=== PATIENT | male | born 1970 | race African-American/Black ===

== ENCOUNTER 2017-06-24 19:18 | Emergency (ER) | payer MEDICAID ==
[~2017-06-24] VITALS: Ht 180.3 cm; Wt 80.0 kg
[2017-06-24] MEDS ORDERED: MESA400C PO (19:22)
[2017-06-25] MEDS ORDERED: ACETAMINOPHEN 500MG TABLET PO ONE (06:45)
[2017-06-25 07:02] LABS: BASOPHILS % 0.9 % (0.0-2.0); EOSINOPHILS % 1.6 % (0.0-5.0); HEMOGLOBIN. 11.2 g/dL (14.0-18.0); LYMPHOCYTES % 14.5 % (20.0-50.0); MEAN CORPUSCULAR HEMOGLOBIN 25.3 pg (28.0-32.0); MEAN CORPUSCULAR VOLUME 79.1 fL (80.0-94.0); MEAN PLATELET VOLUME 7.6 fl (7.4-10.4); MONOCYTES % 9.1 % (2.0-8.0); NEUTROPHILS % 73.9 % (40.0-76.0); PLATELET 267 x1000/uL (130-400); RED BLOOD CELL COUNT 4.42 mill/uL (4.7-6.1); RED CELL DISTRIBUTION WIDTH 17.1 % (11.6-14.6)
[2017-06-25 07:08] LABS: INR 1.1; PROTHROMBIN TIME 11.4 sec (9.4-11.6)
[2017-06-25 07:11] LABS: CHLORIDE 105 mEq/L (98-107)
[2017-06-25 09:12] VITALS: BP 121/72
[2017-06-25 09:19] LABS: CLARITY URINE CLEAR (CLEAR); COLOR URINE YELLOW (YELLOW); KETONES URINE 1+ (NEGATIVE); LEUKOCYTE ESTERASE URINE NEGATIVE (NEGATIVE); NITRITE URINE NEGATIVE (NEGATIVE); OCCULT BLOOD URINE NEGATIVE (NEGATIVE); PROTEIN URINE NEGATIVE (NEGATIVE); SPECIFIC GRAVITY URINE 1.032 (1.005-1.030); UROBILINOGEN URINE 0.2 E.U./dL (0.2-1.0)
[2017-06-25] MEDS ORDERED: IOHEXOL-300 100 ML BOTTLE ONE (09:19)
== END 2017-06-25 10:59 | disposition home or self-care (01) ==
LOC: ER 20:08
DX: K50.90 Crohn's disease, unspecified, without complications (principal); R10.9 Unspecified abdominal pain
CPT/HCPCS: 36415; 74177; 80053; 81003; 83690; 85025; 85610; 99285; Q9967

== ENCOUNTER 2021-07-02 20:37 | Inpatient (IN) | payer MEDICAID, OTHER ==
[~2021-07-02] VITALS: Ht 175.3 cm; Wt 54.4 kg
[~2021-07-02 20:37] MED LIST: MESA400C PO
[2021-07-03] MEDS ORDERED: ONDANSETRON HCL 4MG/2ML INJ IV STA (00:40)
[2021-07-03] MEDS ORDERED: MORPHINE SULFATE 4 MG/ML CPJ (NOT FOR IM USE) IV STA (00:40)
[2021-07-03] MEDS ORDERED: SODIUM CHLORIDE 0.9% 1,000 ML IV ONE (00:45)
[2021-07-03 01:07] LABS: BASOPHILS % 0.4 % (0.0-2.0); EOSINOPHILS % 0.9 % (0.0-5.0); HEMATOCRIT. 35.2 % (42.0-52.0); LYMPHOCYTES % 8.2 % (20.0-50.0); MEAN CORPUSCULAR HEMOGLOBIN 25.6 pg (28.0-32.0); MEAN CORPUSCULAR VOLUME 81.8 fL (80.0-94.0); MEAN PLATELET VOLUME 7.2 fl (7.4-10.4); MONOCYTES % 10.1 % (2.0-8.0); NEUTROPHILS % 80.4 % (40.0-76.0); PLATELET 351 x1000/uL (130-400); RED CELL DISTRIBUTION WIDTH 15.5 % (11.6-14.6)
[2021-07-03 01:09] LABS: CHLORIDE 104 mEq/L (98-107)
[2021-07-03 04:04] LABS: CLARITY URINE CLEAR (CLEAR); COLOR URINE YELLOW (YELLOW); KETONES URINE NEGATIVE (NEGATIVE); LEUKOCYTE ESTERASE URINE NEGATIVE (NEGATIVE); NITRITE URINE NEGATIVE (NEGATIVE); OCCULT BLOOD URINE NEGATIVE (NEGATIVE); PH URINE 5.5 (4.5-8.0); PROTEIN URINE 1+ (NEGATIVE); SPECIFIC GRAVITY URINE >1.040 (1.005-1.030); UROBILINOGEN URINE 0.2 E.U./dL (0.2-1.0)
[2021-07-03] MEDS ORDERED: IOHEXOL-300 100 ML BOTTLE ONE (04:19)
[2021-07-03] MEDS ORDERED: METRONIDAZOLE 500 MG PREMIX 100 ML IV ONE (04:30)
[2021-07-03] MEDS ORDERED: MORPHINE SULFATE 4 MG/ML CPJ (NOT FOR IM USE) IV ONE (04:30)
[2021-07-03] MEDS ORDERED: NALOXONE HCL 0.4MG/ML VIAL IV PRN (08:15)
[2021-07-03] MEDS: MORPHINE SULFATE 2 MG/ML CPJ (NOT FOR IM USE) IV PRN ×4 (08:19→22:59)
[2021-07-03 21:46] VITALS: BP 125/75
[2021-07-03] MEDS ORDERED: ONDANSETRON HCL 4MG/2ML INJ IV PRN (23:45)
[2021-07-04] VITALS: BP 125/75
[2021-07-04] MEDS: MORPHINE SULFATE 2 MG/ML CPJ (NOT FOR IM USE) IV PRN ×4 (03:51→20:16)
[2021-07-04 04:00] VITALS: BP 109/66
[2021-07-04 08:00] VITALS: BP 103/64
[2021-07-04] MEDS: PANTOPRAZOLE SODIUM 40 MG/VIAL IV SCH (09:58)
[2021-07-04] MEDS: PREDNISONE 20MG TABLET PO SCH (09:59)
[2021-07-04 12:00] VITALS: BP 109/59
[2021-07-04] MEDS: PIPERACILLIN/TAZOBACTAM 3.375 G in DEXTROSE 5% WATER 50 ML IV SCH ×2 (14:13→21:39)
[2021-07-04 16:00] VITALS: BP 119/70
[2021-07-05] VITALS: BP 98/52
[2021-07-05] MEDS: MORPHINE SULFATE 2 MG/ML CPJ (NOT FOR IM USE) IV PRN ×5 (01:44→20:27)
[2021-07-05 04:00] VITALS: BP 101/62
[2021-07-05] MEDS: PIPERACILLIN/TAZOBACTAM 3.375 G in DEXTROSE 5% WATER 50 ML IV SCH ×3 (05:32→23:00)
[2021-07-05 08:00] VITALS: BP 116/76
[2021-07-05 08:04] LABS: CHLORIDE 102 mEq/L (98-107)
[2021-07-05 08:14] LABS: TOTAL IRON BINDING CAPACITY 247 ug/dL (250-450)
[2021-07-05 08:23] LABS: FOLIC ACID (FOLATE) SERUM 8.2 ng/mL (>5.38)
[2021-07-05 08:53] LABS: BASOPHILS % 0.1 % (0.0-2.0); HEMOGLOBIN. 11.2 g/dL (14.0-18.0); LYMPHOCYTES % 9.3 % (20.0-50.0); MEAN CORPUSCULAR HEMOGLOBIN 25.1 pg (28.0-32.0); MEAN CORPUSCULAR VOLUME 80.8 fL (80.0-94.0); MEAN PLATELET VOLUME 7.8 fl (7.4-10.4); MONOCYTES % 9.6 % (2.0-8.0); PLATELET 366 x1000/uL (130-400); RED BLOOD CELL COUNT 4.46 mill/uL (4.7-6.1); RED CELL DISTRIBUTION WIDTH 15.4 % (11.6-14.6)
[2021-07-05] MEDS: PANTOPRAZOLE SODIUM 40 MG/VIAL IV SCH (08:57)
[2021-07-05] MEDS: PREDNISONE 20MG TABLET PO SCH (08:57)
[2021-07-05] MEDS: MESALAMINE 400 MG CAPSULE.DR PO SCH ×3 (08:58→17:28)
[2021-07-05 12:00] VITALS: BP 109/64
[2021-07-05 16:00] VITALS: BP 104/64
[2021-07-05 20:00] VITALS: BP 105/52
[2021-07-06] VITALS: BP 106/58
[2021-07-06] MEDS: MORPHINE SULFATE 2 MG/ML CPJ (NOT FOR IM USE) IV PRN ×2 (00:53→07:05)
[2021-07-06 04:00] VITALS: BP 97/53
[2021-07-06] MEDS: PIPERACILLIN/TAZOBACTAM 3.375 G in DEXTROSE 5% WATER 50 ML IV SCH (07:01)
[2021-07-06 08:00] VITALS: BP 114/70
[2021-07-06] MEDS: MESALAMINE 400 MG CAPSULE.DR PO SCH ×2 (09:04→13:11)
[2021-07-06] MEDS: PREDNISONE 20MG TABLET PO SCH (09:05)
[2021-07-06] MEDS: PANTOPRAZOLE SODIUM 40 MG/VIAL IV SCH (09:05)
[2021-07-06 10:16] LABS: BASOPHILS % 0.2 % (0.0-2.0); HEMATOCRIT. 35.4 % (42.0-52.0); LYMPHOCYTES % 10.1 % (20.0-50.0); MEAN CORPUSCULAR HEMOGLOBIN 25.2 pg (28.0-32.0); MEAN CORPUSCULAR VOLUME 81.5 fL (80.0-94.0); MEAN PLATELET VOLUME 7.3 fl (7.4-10.4); MONOCYTES % 7.1 % (2.0-8.0); NEUTROPHILS % 81.6 % (40.0-76.0); PLATELET 358 x1000/uL (130-400); RED BLOOD CELL COUNT 4.35 mill/uL (4.7-6.1); RED CELL DISTRIBUTION WIDTH 15.7 % (11.6-14.6)
[2021-07-06 10:24] LABS: CHLORIDE 102 mEq/L (98-107)
[2021-07-06] MEDS ORDERED: P20 PO (11:38)
[2021-07-06] MEDS ORDERED: MESA400C PO (11:38)
[2021-07-06 12:00] VITALS: BP 103/65
[2021-07-06 13:45] VITALS: BP 103/65
[2021-07-07 13:11] LABS: OVA & PARASITE EXAM Final report (.)
== END 2021-07-06 14:40 | disposition home or self-care (01) | DRG 245 ==
LOC: ER 20:37 → 6EST 07-03 05:09 → EDBEDREQ 07-03 05:20 → ENRESERV 07-03 20:01
PROVIDERS: ADMIT Internal Medicine; ATTEND Internal Medicine
DX: K50.10 Crohn's disease of large intestine without complications (principal); E44.1 Mild protein-calorie malnutrition; D64.9 Anemia, unspecified; F12.90 Cannabis use, unspecified, uncomplicated; Y90.9 Presence of alcohol in blood, level not specified; K86.1 Other chronic pancreatitis; R19.7 Diarrhea, unspecified; F10.21 Alcohol dependence, in remission; Z68.1 Body mass index [BMI] 19.9 or less, adult
CPT/HCPCS: 36415; 74177; 80048; 80053; 81003; 82105; 82270; 82378; 82607; 82728; 82746; 83540; 83550; 85025; 86301; 87015; 87045; 87177; 87209; 87427; 87449; 87493; 89055; 96361; 96365; 96375; 96376; 99285; C9113; J2270; J2405; J2543; J3490; J7030; J7040; J7060; J7512; Q9967

== ENCOUNTER 2023-03-15 22:04 | Inpatient (IN) | payer MEDICAID ==
[~2023-03-15] VITALS: Ht 175.3 cm; Wt 79.8 kg
[~2023-03-15 22:04] MED LIST changes: +P20 PO
[2023-03-15 22:38] LABS: BASOPHILS % 0.5 % (0.0-2.0); DIFFERENTIAL COMMENT 0; HEMOGLOBIN. 9.8 g/dL (14.0-18.0); LYMPHOCYTES % 14.1 % (20.0-50.0); MEAN CORPUSCULAR HEMOGLOBIN 23.9 pg (28.0-32.0); MEAN CORPUSCULAR HGB CONC 31.4 g/dL (31.0-37.0); MEAN PLATELET VOLUME 7.2 fl (7.4-10.4); MONOCYTES % 8.6 % (2.0-8.0); NEUTROPHILS % 72.8 % (40.0-76.0); PLATELET 316 x1000/uL (130-400); RED BLOOD CELL COUNT 4.08 mill/uL (4.7-6.1); RED CELL DISTRIBUTION WIDTH 17.3 % (11.6-14.6); WHITE BLOOD COUNT 9.5 x1000/uL (4.5-11.0)
[2023-03-15 22:57] LABS: ALANINE AMINOTRANSFERASE 15 IU/L (10-49); ALBUMIN 3.9 g/dL (3.2-4.8); ASPARTATE AMINOTRANSFERASE 24 IU/L (<34); BILIRUBIN TOTAL 0.3 mg/dL (0.1-1.0); CALCIUM 8.9 mg/dL (8.7-10.4); CARBON DIOXIDE 29 mEq/L (21-32); CHLORIDE 103 mEq/L (98-107); CREATININE 0.7 mg/dL (0.6-1.3); GLUCOSE 94 mg/dL (70-105); POTASSIUM 3.6 mEq/L (3.5-5.1); PROTEIN TOTAL 7.2 g/dL (6.0-8.3); SODIUM 139 mEq/L (136-145); UREA NITROGEN BLOOD 11 mg/dL (9-23)
[2023-03-16] MEDS ORDERED: KETOROLAC 30MG/ML VIAL IV STA (00:28)
[2023-03-16] MEDS ORDERED: MAGNESIUM/ALUMINUM HYDROXIDE/SIMETHICONE 30ML UDC PO STA (00:28)
[2023-03-16] MEDS ORDERED: SODIUM CHLORIDE 0.9% 1,000 ML IV ONE (00:30)
[2023-03-16 04:00] VITALS: BP 112/50; PULSE 56; RESP 18; TEMP 97.7
[2023-03-16] MEDS ORDERED: ONDANSETRON HCL 4MG/2ML INJ IV PRN (04:30)
[2023-03-16 04:33] VITALS: BP 112/50; PULSE 56; RESP 18; TEMP 97.7
[2023-03-16] MEDS: SODIUM CHLORIDE 0.9% 1,000 ML IV SCH ×2 (04:58→13:51)
[2023-03-16] MEDS: MORPHINE SULFATE 2 MG/ML CPJ (NOT FOR IM USE) IV PRN ×4 (04:59→19:42)
[2023-03-16 07:27] LABS: BASOPHILS % 1.1 % (0.0-2.0); DIFFERENTIAL COMMENT 0; EOSINOPHILS % 6.1 % (0.0-5.0); HEMOGLOBIN. 9.8 g/dL (14.0-18.0); MEAN CORPUSCULAR HEMOGLOBIN 23.9 pg (28.0-32.0); MEAN CORPUSCULAR HGB CONC 31.6 g/dL (31.0-37.0); MEAN CORPUSCULAR VOLUME 75.8 fL (80.0-94.0); MONOCYTES % 10.2 % (2.0-8.0); NEUTROPHILS % 65.6 % (40.0-76.0); PLATELET 304 x1000/uL (130-400); RED BLOOD CELL COUNT 4.09 mill/uL (4.7-6.1); RED CELL DISTRIBUTION WIDTH 17.5 % (11.6-14.6); WHITE BLOOD COUNT 7.3 x1000/uL (4.5-11.0)
[2023-03-16 08:00] VITALS: BP 130/72; PULSE 59; RESP 18; TEMP 97.9
[2023-03-16 08:35] LABS: CALCIUM 8.1 mg/dL (8.7-10.4); CARBON DIOXIDE 28 mEq/L (21-32); CHLORIDE 105 mEq/L (98-107); CREATININE 0.6 mg/dL (0.6-1.3); GLUCOSE 79 mg/dL (70-105); POTASSIUM 3.7 mEq/L (3.5-5.1); SODIUM 139 mEq/L (136-145); UREA NITROGEN BLOOD 9 mg/dL (9-23)
[2023-03-16] MEDS ORDERED: IOHEXOL-300 100 ML BOTTLE ONE (09:43)
[2023-03-16 12:00] VITALS: BP 123/75; PULSE 61; RESP 19; TEMP 97.7
[2023-03-16] MEDS: METHYLPREDNISOLONE SOD SUCC 40MG/ML (ACT-O-VIAL) IV SCH ×2 (14:52→21:29)
[2023-03-16] MEDS: MESALAMINE 400 MG CAPSULE.DR PO SCH ×2 (14:52→17:15)
[2023-03-16] MEDS: PIPERACILLIN/TAZOBACTAM 3.375 G in DEXTROSE 5% WATER 50 ML IV SCH ×2 (15:39→21:30)
[2023-03-16 15:54] LABS: IRON 30 ug/dL (65-175); LACTATE DEHYDROGENASE 271 IU/L (120-246); TOTAL IRON BINDING CAPACITY 274 ug/dl (250-425)
[2023-03-16 15:59] LABS: FERRITIN 17 ng/mL (22-322); VITAMIN B12 SERUM 526 pg/mL (211-911)
[2023-03-16 16:00] VITALS: BP 120/69; PULSE 61; RESP 18; TEMP 97.9
[2023-03-16 16:01] LABS: CARCINO EMBRYONIC ANTIGEN 0.4 ng/ml
[2023-03-16] MEDS ORDERED: NALOXONE HCL 0.4MG/ML VIAL IV PRN (18:30)
[2023-03-16 20:00] VITALS: BP 108/70; PULSE 64; RESP 19; TEMP 97.7
[2023-03-17] VITALS: BP 114/74; PULSE 56; RESP 18; TEMP 97.5
[2023-03-17] MEDS: MORPHINE SULFATE 2 MG/ML CPJ (NOT FOR IM USE) IV PRN ×5 (00:01→17:28)
[2023-03-17] MEDS: SODIUM CHLORIDE 0.9% 1,000 ML IV SCH ×2 (00:02→10:18)
[2023-03-17 04:00] VITALS: BP 110/7; PULSE 54; RESP 19; TEMP 97.5
[2023-03-17] MEDS: PIPERACILLIN/TAZOBACTAM 3.375 G in DEXTROSE 5% WATER 50 ML IV SCH ×2 (05:05→14:34)
[2023-03-17] MEDS: METHYLPREDNISOLONE SOD SUCC 40MG/ML (ACT-O-VIAL) IV SCH ×2 (05:06→14:34)
[2023-03-17 07:47] LABS: HEMATOCRIT. 34.7 % (42.0-52.0); HEMOGLOBIN. 10.4 g/dL (14.0-18.0); MEAN CORPUSCULAR HEMOGLOBIN 23.2 pg (28.0-32.0); MEAN CORPUSCULAR VOLUME 77.4 fL (80.0-94.0); MEAN PLATELET VOLUME 7.9 fl (7.4-10.4); PLATELET 357 x1000/uL (130-400); RED BLOOD CELL COUNT 4.48 mill/uL (4.7-6.1); RED CELL DISTRIBUTION WIDTH 17.3 % (11.6-14.6); WHITE BLOOD COUNT 12.5 x1000/uL (4.5-11.0)
[2023-03-17 07:54] LABS: DIFFERENTIAL COMMENT 1
[2023-03-17 08:00] VITALS: BP 110/72; PULSE 56; RESP 18; TEMP 97.7
[2023-03-17 08:21] LABS: CALCIUM 8.4 mg/dL (8.7-10.4); CARBON DIOXIDE 25 mEq/L (21-32); CHLORIDE 103 mEq/L (98-107); CREATININE 0.7 mg/dL (0.6-1.3); GLUCOSE 117 mg/dL (70-105); POTASSIUM 4.3 mEq/L (3.5-5.1); SODIUM 138 mEq/L (136-145); UREA NITROGEN BLOOD 7 mg/dL (9-23)
[2023-03-17] MEDS: MESALAMINE 400 MG CAPSULE.DR PO SCH ×3 (09:05→17:29)
[2023-03-17 12:00] VITALS: BP 110/65; PULSE 90; RESP 18; TEMP 96.9
[2023-03-17 16:00] VITALS: BP 108/57; PULSE 63; RESP 18; TEMP 96
[2023-03-17] MEDS ORDERED: FERROUS SULFATE 325MG TABLET PO SCH (17:00)
[2023-03-17] MEDS ORDERED: ASCORBIC ACID 500 MG TABLET PO SCH (17:00)
[2023-03-17] MEDS ORDERED: P20 PO (17:39)
[2023-03-17] MEDS ORDERED: MESA400C PO (17:39)
[2023-03-17 18:15] VITALS: BP 108/57; PULSE 63; TEMP 97.5; O2SAT 100
[2023-03-18 04:02] LABS: ANISOCYTOSIS 1+; HYPOCHROMASIA 1+; MICROCYTOSIS 1+; PLATELET ESTIMATE NORMAL
[2023-03-18 09:07] LABS: ALPHA FETOPROTEIN TUMOR MARKER < 1.8 ng/mL (0.0-8.4); CA 19-9 8 U/mL (0-35)
[2023-03-21 13:07] LABS: SACCHAROMYCES CEREVISIAE IGG <20.0 Units (0.0-24.9); SACCHAROMYCES CEREVISIAE IGM <20.0 Units (0.0-24.9)
[2023-03-21 17:11] LABS: ANTI-MYELOPEROXIDASE AB < 0.2 units (0.0-0.9); ANTI-PROTEINASE 3 ABS < 0.2 units (0.0-0.9)
[2023-03-22 13:06] LABS: ATYPICAL P-ANCA <1:20 titer (Neg:<1:20); ATYPICAL pANCA <1:20 titer (Neg:<1:20); CYTOPLASMIC C-ANCA <1:20 titer (Neg:<1:20); PERINUCLEAR P-ANCA <1:20 titer (Neg:<1:20)
== END 2023-03-17 18:52 | disposition home or self-care (01) | DRG 245 ==
LOC: ER 22:04 → EDBEDREQ 03-16 00:53 → 6EST 03-16 04:13
PROVIDERS: ADMIT Internal Medicine; ATTEND Internal Medicine
DX: K50.90 Crohn's disease, unspecified, without complications (principal); R16.0 Hepatomegaly, not elsewhere classified; D50.9 Iron deficiency anemia, unspecified; F14.10 Cocaine abuse, uncomplicated; F17.210 Nicotine dependence, cigarettes, uncomplicated; T38.0X5A Adverse effect of glucocorticoids and synthetic analogues, initial encounter; Z79.899 Other long term (current) drug therapy; Z91.010 Allergy to peanuts; Y92.89 Other specified places as the place of occurrence of the external cause
CPT/HCPCS: 36415; 74177; 80048; 80053; 82105; 82270; 82378; 82607; 82728; 82746; 83520; 83540; 83550; 83605; 83615; 85025; 85044; 86256; 86301; 86671; 99285; J1885; J2270; J2543; J2920; J7030; J7060; Q9967

== ENCOUNTER 2023-05-16 22:51 | Emergency (ER) | payer MEDICAID ==
[~2023-05-16] VITALS: Ht 180.3 cm; Wt 63.0 kg
[~2023-05-16 22:51] MED LIST changes: -P20 PO; +PRED10TA23 MT
[2023-05-16 23:30] VITALS: O2SAT 98
[2023-05-16 23:35] LABS: BASOPHILS % 1.8 % (0.0-2.0); DIFFERENTIAL COMMENT 0; EOSINOPHILS % 5.1 % (0.0-5.0); HEMATOCRIT. 30.4 % (42.0-52.0); HEMOGLOBIN. 9.5 g/dL (14.0-18.0); MEAN CORPUSCULAR HEMOGLOBIN 23.8 pg (28.0-32.0); MEAN CORPUSCULAR HGB CONC 31.3 g/dL (31.0-37.0); MONOCYTES % 9.2 % (2.0-8.0); NEUTROPHILS % 68.9 % (40.0-76.0); PLATELET 296 x1000/uL (130-400); RED CELL DISTRIBUTION WIDTH 17.6 % (11.6-14.6); WHITE BLOOD COUNT 8.6 x1000/uL (4.5-11.0)
[2023-05-16 23:49] LABS: ALANINE AMINOTRANSFERASE 11 IU/L (10-49); ALBUMIN 4.1 g/dL (3.2-4.8); ASPARTATE AMINOTRANSFERASE 22 IU/L (<34); BILIRUBIN TOTAL 0.3 mg/dL (0.1-1.0); CALCIUM 8.9 mg/dL (8.7-10.4); CARBON DIOXIDE 28 mEq/L (21-32); CHLORIDE 107 mEq/L (98-107); CREATININE 0.8 mg/dL (0.6-1.3); GLUCOSE 88 mg/dL (70-105); PROTEIN TOTAL 6.5 g/dL (6.0-8.3); SODIUM 141 mEq/L (136-145); UREA NITROGEN BLOOD 16 mg/dL (9-23)
[2023-05-17 00:03] LABS: CLARITY URINE CLEAR (CLEAR); COLOR URINE YELLOW (YELLOW); GLUCOSE URINE NEGATIVE (NEGATIVE); KETONES URINE TRACE (NEGATIVE); LEUKOCYTE ESTERASE URINE NEGATIVE (NEGATIVE); NITRITE URINE NEGATIVE (NEGATIVE); OCCULT BLOOD URINE NEGATIVE (NEGATIVE); PROTEIN URINE NEGATIVE (NEGATIVE); SPECIFIC GRAVITY URINE 1.025 (1.005-1.030)
[2023-05-17] MEDS: ACETAMINOPHEN 325MG TABLET PO ONE (01:00)
[2023-05-17 01:05] VITALS: BP 141/74; PULSE 88; RESP 16; TEMP 98.3
== END 2023-05-17 01:59 | disposition home or self-care (01) ==
LOC: ER 22:51
DX: R10.9 Unspecified abdominal pain (principal); K50.90 Crohn's disease, unspecified, without complications; Z88.6 Allergy status to analgesic agent
CPT/HCPCS: 36415; 80053; 81003; 85025; 99283

== ENCOUNTER 2023-07-09 03:42 | Inpatient (IN) | payer MEDICAID ==
[~2023-07-09] VITALS: Ht 180.3 cm; Wt 62.6 kg
[2023-07-09 04:19] LABS: BASOPHILS % 0.9 % (0.0-2.0); DIFFERENTIAL COMMENT 0; HEMATOCRIT. 32.7 % (42.0-52.0); HEMOGLOBIN. 10.1 g/dL (14.0-18.0); LYMPHOCYTES % 9.9 % (20.0-50.0); MEAN CORPUSCULAR HEMOGLOBIN 24.1 pg (28.0-32.0); MEAN CORPUSCULAR VOLUME 77.7 fL (80.0-94.0); MEAN PLATELET VOLUME 7.2 fl (7.4-10.4); MONOCYTES % 10.1 % (2.0-8.0); NEUTROPHILS % 73.1 % (40.0-76.0); PLATELET 297 x1000/uL (130-400); RED BLOOD CELL COUNT 4.21 mill/uL (4.7-6.1); RED CELL DISTRIBUTION WIDTH 17.7 % (11.6-14.6); WHITE BLOOD COUNT 10.2 x1000/uL (4.5-11.0)
[2023-07-09 04:37] LABS: INR 0.9; PROTHROMBIN TIME 10.5 sec (9.6-11.0)
[2023-07-09 04:41] LABS: ALANINE AMINOTRANSFERASE 18 IU/L (10-49); ALBUMIN 4.5 g/dL (3.2-4.8); ASPARTATE AMINOTRANSFERASE 32 IU/L (<34); BILIRUBIN TOTAL 0.3 mg/dL (0.1-1.0); CALCIUM 9.3 mg/dL (8.7-10.4); CARBON DIOXIDE 28 mEq/L (21-32); CHLORIDE 106 mEq/L (98-107); CREATININE 0.8 mg/dL (0.6-1.3); GLUCOSE 84 mg/dL (70-105); POTASSIUM 4.1 mEq/L (3.5-5.1); PROTEIN TOTAL 7.6 g/dL (6.0-8.3); SODIUM 141 mEq/L (136-145); UREA NITROGEN BLOOD 14 mg/dL (9-23)
[2023-07-09 04:45] LABS: ETHANOL BLOOD < 10 mg/dL (<10)
[2023-07-09] MEDS: SODIUM CHLORIDE 0.9% 1,000 ML IV ONE (06:30)
[2023-07-09] MEDS: KETOROLAC 30MG/ML VIAL IV ONE (06:53)
[2023-07-09] MEDS: ONDANSETRON HCL 4MG/2ML INJ IV ONE (06:53)
[2023-07-09] MEDS: MORPHINE SULFATE 4 MG/ML INJ (FOR IV/IM USE) IV ONE (07:49)
[2023-07-09] MEDS ORDERED: ONDANSETRON HCL 4MG/2ML INJ IV PRN (11:30)
[2023-07-09] MEDS: METHYLPREDNISOLONE SOD SUCC 40MG/ML (ACT-O-VIAL) IV SCH (11:54)
[2023-07-09] MEDS: HYDROCODONE/ACETAMINOPHEN 5/325MG TABLET PO NR (11:55)
[2023-07-09] MEDS: MESALAMINE 400 MG CAPSULE.DR PO SCH ×2 (13:11→17:00)
[2023-07-09] MEDS: HYDROCODONE/ACETAMINOPHEN 5/325MG TABLET PO PRN (16:14)
[2023-07-09 16:51] VITALS: BP 115/67; PULSE 64; RESP 20; TEMP 98.2
[2023-07-09 20:00] VITALS: BP 102/64; PULSE 65; RESP 16; TEMP 96.6
[2023-07-10] VITALS: BP 123/80; PULSE 52; RESP 20; TEMP 97.3
[2023-07-10] MEDS: PANTOPRAZOLE SODIUM 40 MG/VIAL IV SCH (09:19)
[2023-07-10 12:13] VITALS: BP 110/64; PULSE 71; RESP 20; TEMP 98.2
[2023-07-10 16:00] VITALS: BP 146/73; PULSE 60; RESP 18; TEMP 98.2
[2023-07-10 20:00] VITALS: BP 137/83; PULSE 72; RESP 19; TEMP 97.7
[2023-07-11] VITALS: BP 120/66; PULSE 67; RESP 19; TEMP 98.1
[2023-07-11 04:00] VITALS: BP 123/72; PULSE 72; RESP 18; TEMP 97.8
[2023-07-11 06:38] LABS: BASOPHILS % 0.2 % (0.0-2.0); DIFFERENTIAL COMMENT 0; HEMATOCRIT. 31.2 % (42.0-52.0); HEMOGLOBIN. 9.7 g/dL (14.0-18.0); LYMPHOCYTES % 7.5 % (20.0-50.0); MEAN CORPUSCULAR HEMOGLOBIN 23.8 pg (28.0-32.0); MEAN CORPUSCULAR HGB CONC 31.1 g/dL (31.0-37.0); MEAN CORPUSCULAR VOLUME 76.5 fL (80.0-94.0); MEAN PLATELET VOLUME 7.5 fl (7.4-10.4); MONOCYTES % 4.5 % (2.0-8.0); NEUTROPHILS % 87.8 % (40.0-76.0); PLATELET 294 x1000/uL (130-400); RED BLOOD CELL COUNT 4.08 mill/uL (4.7-6.1); RED CELL DISTRIBUTION WIDTH 17.7 % (11.6-14.6); WHITE BLOOD COUNT 17.5 x1000/uL (4.5-11.0)
[2023-07-11 07:23] LABS: CALCIUM 8.5 mg/dL (8.7-10.4); CARBON DIOXIDE 28 mEq/L (21-32); CHLORIDE 106 mEq/L (98-107); CREATININE 0.7 mg/dL (0.6-1.3); GLUCOSE 128 mg/dL (70-105); IRON 25 ug/dL (65-175); POTASSIUM 4.1 mEq/L (3.5-5.1); SODIUM 138 mEq/L (136-145); TOTAL IRON BINDING CAPACITY 234 ug/dl (250-425); UREA NITROGEN BLOOD 14 mg/dL (9-23)
[2023-07-11 07:50] LABS: FERRITIN 12 ng/mL (22-322); FOLIC ACID (FOLATE) SERUM 13.26 ng/mL (>5.38); VITAMIN B12 SERUM 350 pg/mL (211-911)
[2023-07-11 08:00] VITALS: BP 130/71; PULSE 65; RESP 20; TEMP 98.1
[2023-07-11] MEDS ORDERED: NALOXONE HCL 0.4MG/ML VIAL IV PRN (08:45)
[2023-07-11] MEDS: ASCORBIC ACID 500 MG TABLET PO SCH (11:01)
[2023-07-11] MEDS: FERROUS SULFATE 325MG TABLET PO SCH (11:01)
[2023-07-11 12:00] VITALS: BP 126/77; PULSE 71; RESP 20; TEMP 98.1
[2023-07-11 13:47] VITALS: BP 102/53; PULSE 72; TEMP 98; O2SAT 100
[2023-07-12 13:12] LABS: ATYPICAL pANCA <1:20 titer (Neg:<1:20); SACCHAROMYCES CEREVISIAE IGG <20.0 Units (0.0-24.9); SACCHAROMYCES CEREVISIAE IGM <20.0 Units (0.0-24.9)
== END 2023-07-11 15:14 | disposition home or self-care (01) | DRG 245 ==
LOC: ER 03:42 → EDBEDREQTM 09:48 → EDBEDREQ 09:48 → 6WST 09:55
PROVIDERS: ADMIT Internal Medicine; ATTEND Internal Medicine
DX: K50.90 Crohn's disease, unspecified, without complications (principal); D50.9 Iron deficiency anemia, unspecified; F10.11 Alcohol abuse, in remission; F14.20 Cocaine dependence, uncomplicated; F17.210 Nicotine dependence, cigarettes, uncomplicated; Z88.6 Allergy status to analgesic agent; Z91.010 Allergy to peanuts
CPT/HCPCS: 36415; 74176; 80048; 80053; 80320; 82270; 82607; 82728; 82746; 83540; 83550; 85025; 86256; 86671; 87015; 87045; 87177; 87209; 87427; 87449; 87493; 99285; C9113; J1885; J2270; J2405; J2920; J7030; G0480

== ENCOUNTER 2023-10-24 01:31 | Emergency (ER) | payer MEDICAID ==
[~2023-10-24 01:31] MED LIST changes: +NAPR-681 PO
[2023-10-24 03:55] LABS: DIFFERENTIAL COMMENT 0; EOSINOPHILS % 2.1 % (0.0-5.0); HEMATOCRIT. 32.2 % (42.0-52.0); HEMOGLOBIN. 9.9 g/dL (14.0-18.0); LYMPHOCYTES % 10.7 % (20.0-50.0); MEAN CORPUSCULAR HEMOGLOBIN 24.6 pg (28.0-32.0); MEAN CORPUSCULAR HGB CONC 30.6 g/dL (31.0-37.0); MEAN CORPUSCULAR VOLUME 80.4 fL (80.0-94.0); MEAN PLATELET VOLUME 7.2 fl (7.4-10.4); MONOCYTES % 8.6 % (2.0-8.0); NEUTROPHILS % 77.6 % (40.0-76.0); PLATELET 272 x1000/uL (130-400); RED BLOOD CELL COUNT 4.01 mill/uL (4.7-6.1); RED CELL DISTRIBUTION WIDTH 18.6 % (11.6-14.6); WHITE BLOOD COUNT 10.8 x1000/uL (4.5-11.0)
[2023-10-24 04:06] LABS: CHLORIDE 110 mEq/L (98-107); POTASSIUM 3.7 mEq/L (3.5-5.1); SODIUM 143 mEq/L (136-145)
[2023-10-24 04:07] LABS: CARBON DIOXIDE 26 mEq/L (21-32)
[2023-10-24 04:12] LABS: CREATININE 0.8 mg/dL (0.6-1.3); GLUCOSE 88 mg/dL (70-105)
[2023-10-24 04:13] LABS: UREA NITROGEN BLOOD 16 mg/dL (9-23)
[2023-10-24 04:14] LABS: ALANINE AMINOTRANSFERASE 18 IU/L (10-49); ALBUMIN 4.1 g/dL (3.2-4.8); ASPARTATE AMINOTRANSFERASE 28 IU/L (<34)
[2023-10-24 04:15] LABS: BILIRUBIN TOTAL 0.3 mg/dL (0.1-1.0); PROTEIN TOTAL 6.8 g/dL (6.0-8.3)
[2023-10-24 04:18] LABS: BILIRUBIN DIRECT < 0.1 mg/dL (<=3.0)
[2023-10-24] MEDS ORDERED: IBUPROFEN 600MG TABLET PO ONE (06:30)
[2023-10-24] MEDS ORDERED: P50 MT (06:30)
[2023-10-24] MEDS: ONDANSETRON 4MG ODT PO ONE (06:30)
[2023-10-24] MEDS: PREDNISONE 20MG TABLET PO ONE (06:30)
[2023-10-24] MEDS ORDERED: CIPR-263 MT (06:31)
[2023-10-24] MEDS ORDERED: MESA400C PO (06:31)
[2023-10-24] MEDS ORDERED: METR-167 MT (06:31)
[2023-10-24] MEDS: KETOROLAC 30MG/ML VIAL IM ONE (08:20)
== END 2023-10-24 08:19 | disposition home or self-care (01) ==
LOC: ER 01:54
DX: R10.84 Generalized abdominal pain (principal); R19.7 Diarrhea, unspecified; K50.90 Crohn's disease, unspecified, without complications; Z88.6 Allergy status to analgesic agent; Z79.899 Other long term (current) drug therapy; Z87.19 Personal history of other diseases of the digestive system; Z86.2 Personal history of diseases of the blood and blood-forming organs and certain disorders involving the immune mechanism
CPT/HCPCS: 99285; 74176; 71045; 80053; 83690; 85025; 36415; 96372; 80076; Q0162; J7512; J1885

== ENCOUNTER 2024-02-22 07:43 | Emergency (ER) | payer MEDICAID ==
[~2024-02-22] VITALS: Ht 175.3 cm; Wt 60.0 kg
[~2024-02-22 07:43] MED LIST changes: +ASCO500C14 MT; +FERR325T6 PO; +MESA0.37 PO; -MESA400C PO; -NAPR-681 PO; +P50 PO; +PRED5TAB MT
[2024-02-22 07:47] VITALS: O2SAT 98
[2024-02-22 08:30] LABS: BASOPHILS % 0.4 % (0.0-2.0); HEMATOCRIT. 34.6 % (42.0-52.0); HEMOGLOBIN. 10.6 g/dL (14.0-18.0); LYMPHOCYTES % 15.2 % (20.0-50.0); MEAN CORPUSCULAR HEMOGLOBIN 25.1 pg (28.0-32.0); MEAN CORPUSCULAR HGB CONC 30.6 g/dL (31.0-37.0); MEAN PLATELET VOLUME 7.3 fl (7.4-10.4); MONOCYTES % 9.1 % (2.0-8.0); NEUTROPHILS % 69.3 % (40.0-76.0); PLATELET 258 x1000/uL (130-400); RED BLOOD CELL COUNT 4.22 mill/uL (4.7-6.1); WHITE BLOOD COUNT 8.1 x1000/uL (4.5-11.0)
[2024-02-22 08:37] LABS: CHLORIDE 107 mEq/L (98-107); POTASSIUM 3.9 mEq/L (3.5-5.1); SODIUM 141 mEq/L (136-145)
[2024-02-22 08:38] LABS: CALCIUM 9.2 mg/dL (8.7-10.4); CARBON DIOXIDE 29 mEq/L (21-32)
[2024-02-22 08:43] LABS: CREATININE 0.9 mg/dL (0.6-1.3); GLUCOSE 96 mg/dL (70-105); TROPONIN I HIGH SENSITIVITY 6 ng/L (3.0-53); UREA NITROGEN BLOOD 13 mg/dL (9-23)
[2024-02-22 08:45] LABS: ALANINE AMINOTRANSFERASE 18 IU/L (10-49); ALBUMIN 4.2 g/dL (3.2-4.8); ASPARTATE AMINOTRANSFERASE 29 IU/L (<34); BILIRUBIN DIRECT 0.2 mg/dL (<=3.0); BILIRUBIN TOTAL 0.5 mg/dL (0.1-1.0)
[2024-02-22 09:09] LABS: CLARITY URINE CLEAR (CLEAR); COLOR URINE YELLOW (YELLOW); GLUCOSE URINE NEGATIVE (NEGATIVE); KETONES URINE NEGATIVE (NEGATIVE); LEUKOCYTE ESTERASE URINE NEGATIVE (NEGATIVE); NITRITE URINE NEGATIVE (NEGATIVE); OCCULT BLOOD URINE NEGATIVE (NEGATIVE); PROTEIN URINE NEGATIVE (NEGATIVE)
[2024-02-22] MEDS: CELECOXIB 200MG CAPSULE PO ONE (09:30)
[2024-02-22] MEDS: HYDROCODONE/ACETAMINOPHEN 5/325MG TABLET PO ONE (09:30)
[2024-02-22] MEDS: DEXAMETHASONE 10 MG/ML VIAL IM ONE (09:30)
[2024-02-22] MEDS ORDERED: LACT10SO70 MT (09:38)
[2024-02-22] MEDS ORDERED: CELE-146 MT (09:38)
[2024-02-22] MEDS ORDERED: P20 MT (09:41)
[2024-02-22] MEDS: LACTULOSE 20G/30ML UDC PO ONE (10:09)
[2024-02-22 10:12] VITALS: BP 136/87; PULSE 76; RESP 18; TEMP 36.83628; O2SAT 99
== END 2024-02-22 10:09 | disposition home or self-care (01) ==
LOC: ER 07:43
DX: R10.31 Right lower quadrant pain (principal); Z88.6 Allergy status to analgesic agent; Z79.899 Other long term (current) drug therapy; Z98.890 Other specified postprocedural states
CPT/HCPCS: 99285; 74176; 80076; 80048; 81003; 83690; 85025; 86850; 86900; 86901; 84484; 36415; 96372; J1100

== ENCOUNTER 2024-04-11 23:16 | Emergency (ER) | payer MEDICAID ==
[~2024-04-11] VITALS: Ht 172.7 cm; Wt 66.0 kg
[~2024-04-11 23:16] MED LIST changes: +CELE-146 MT; +LACT10SO70 MT; +P20 MT
[2024-04-11 23:33] VITALS: O2SAT 100
[2024-04-11 23:34] VITALS: O2SAT 99
[2024-04-12 00:17] VITALS: TEMP 98.3
[2024-04-12] MEDS: ACETAMINOPHEN 500MG TABLET PO ONE (00:17)
[2024-04-12 03:01] LABS: BASOPHILS % 0.7 % (0.0-2.0); EOSINOPHILS % 3.6 % (0.0-5.0); HEMATOCRIT. 33.6 % (42.0-52.0); HEMOGLOBIN. 10.5 g/dL (14.0-18.0); LYMPHOCYTES % 14.8 % (20.0-50.0); MEAN CORPUSCULAR HEMOGLOBIN 25.2 pg (28.0-32.0); MEAN CORPUSCULAR HGB CONC 31.2 g/dL (31.0-37.0); MEAN CORPUSCULAR VOLUME 80.7 fL (80.0-94.0); MEAN PLATELET VOLUME 7.3 fl (7.4-10.4); MONOCYTES % 10.3 % (2.0-8.0); NEUTROPHILS % 70.6 % (40.0-76.0); PLATELET 243 x1000/uL (130-400); RED BLOOD CELL COUNT 4.17 mill/uL (4.7-6.1); RED CELL DISTRIBUTION WIDTH 16.4 % (11.6-14.6); WHITE BLOOD COUNT 9.3 x1000/uL (4.5-11.0)
[2024-04-12 03:04] LABS: CARBON DIOXIDE 24 mEq/L (21-32); CHLORIDE 104 mEq/L (98-107); SODIUM 139 mEq/L (136-145)
[2024-04-12 03:05] LABS: CALCIUM 9.3 mg/dL (8.7-10.4)
[2024-04-12 03:09] LABS: CREATININE 0.7 mg/dL (0.6-1.3)
[2024-04-12 03:10] LABS: GLUCOSE 87 mg/dL (70-105); UREA NITROGEN BLOOD 13 mg/dL (9-23)
[2024-04-12 03:11] LABS: ALANINE AMINOTRANSFERASE 13 IU/L (10-49); ALBUMIN 4.2 g/dL (3.2-4.8); ASPARTATE AMINOTRANSFERASE 19 IU/L (<34)
[2024-04-12 03:12] LABS: BILIRUBIN DIRECT 0.1 mg/dL (<=3.0); BILIRUBIN TOTAL 0.5 mg/dL (0.1-1.0); PROTEIN TOTAL 7.1 g/dL (6.0-8.3)
[2024-04-12 04:00] LABS: CLARITY URINE CLEAR (CLEAR); COLOR URINE YELLOW (YELLOW); GLUCOSE URINE NEGATIVE (NEGATIVE); KETONES URINE NEGATIVE (NEGATIVE); LEUKOCYTE ESTERASE URINE NEGATIVE (NEGATIVE); NITRITE URINE NEGATIVE (NEGATIVE); OCCULT BLOOD URINE NEGATIVE (NEGATIVE); PROTEIN URINE TRACE (NEGATIVE); SPECIFIC GRAVITY URINE 1.027 (1.005-1.030); UROBILINOGEN URINE 0.2 E.U./dL (0.2-1.0)
[2024-04-12 04:15] VITALS: BP 115/63; PULSE 102; RESP 16
[2024-04-12] MEDS: MORPHINE SULFATE 4 MG/ML INJ (FOR IV/IM USE) IM ONE (04:15)
[2024-04-12] MEDS ORDERED: ACET-2708 MT (04:38)
[2024-04-12] MEDS ORDERED: PRED5TAB48 MT (04:45)
[2024-04-12 05:02] LABS: BACTERIA URINE NONE SEEN; RBC URINE NONE SEEN /hpf (0-2); SQUAMOUS EPITHELIAL CELL URINE NONE SEEN /lpf (RARE/1+); WBC URINE NONE SEEN /hpf (0-2)
== END 2024-04-12 04:45 | disposition home or self-care (01) ==
LOC: ER 23:16
DX: K50.90 Crohn's disease, unspecified, without complications (principal); Z79.52 Long term (current) use of systemic steroids; Z88.6 Allergy status to analgesic agent
CPT/HCPCS: 36415; 99283; 80076; 80048; 81003; 83690; 85025; 96372; J2270; Z7610

== ENCOUNTER 2024-06-01 15:36 | Emergency (ER) | payer MEDICAID ==
[~2024-06-01] VITALS: Ht 185.4 cm; Wt 86.1 kg
[~2024-06-01 15:36] MED LIST changes: +ACET-2708 MT; +PRED5TAB48 MT
[2024-06-01 15:42] VITALS: O2SAT 96
[2024-06-01 16:02] VITALS: BP 121/68; PULSE 87; RESP 18; TEMP 36.8; O2SAT 97
[2024-06-01 16:43] LABS: HEMATOCRIT. 38.1 % (42.0-52.0); HEMOGLOBIN. 11.8 g/dL (14.0-18.0); MEAN CORPUSCULAR HEMOGLOBIN 24.8 pg (28.0-32.0); MEAN CORPUSCULAR HGB CONC 30.8 g/dL (31.0-37.0); MEAN CORPUSCULAR VOLUME 80.5 fL (80.0-94.0); MEAN PLATELET VOLUME 7.8 fl (7.4-10.4); PLATELET 270 x1000/uL (130-400); RED BLOOD CELL COUNT 4.74 mill/uL (4.7-6.1); RED CELL DISTRIBUTION WIDTH 17.1 % (11.6-14.6); WHITE BLOOD COUNT 14.4 x1000/uL (4.5-11.0)
[2024-06-01 16:44] LABS: DIFFERENTIAL COMMENT 1
[2024-06-01 16:47] LABS: CHLORIDE 99 mEq/L (98-107); SODIUM 138 mEq/L (136-145)
[2024-06-01 16:48] LABS: CARBON DIOXIDE 25 mEq/L (21-32)
[2024-06-01 16:49] LABS: CALCIUM 10.2 mg/dL (8.7-10.4)
[2024-06-01 16:53] LABS: CREATININE 1.1 mg/dL (0.6-1.3); GLUCOSE 104 mg/dL (70-105)
[2024-06-01 16:54] LABS: UREA NITROGEN BLOOD 21 mg/dL (9-23)
[2024-06-01 16:59] LABS: HYPOCHROMASIA 1+; PLATELET ESTIMATE NORMAL
[2024-06-01] MEDS: ACETAMINOPHEN 1000MG/100ML 100 ML IV ONE (19:00)
[2024-06-01] MEDS ORDERED: IOHEXOL-300 100 ML BOTTLE ONE (23:15)
== END 2024-06-01 21:44 | disposition home or self-care (01) ==
LOC: ER 15:36
DX: K50.90 Crohn's disease, unspecified, without complications (principal); Z79.52 Long term (current) use of systemic steroids; Z98.890 Other specified postprocedural states; Z79.899 Other long term (current) drug therapy; Z88.6 Allergy status to analgesic agent
CPT/HCPCS: 99285; 74177; 96365; 80048; 85025; 36415; Q9967; J0131